=== PATIENT | female | born 1965 | race Hispanic/Latino ===

== ENCOUNTER → 2020-10-21 | Outpatient (CLI) | payer OTHER ==
[~2020-10-21] MED LIST: DOXYCYCLINE HY100 MG PO; PREMARIN0.625 MG PO; Z.0.ATENOLOL50 MG PO
== END ==
LOC: MRI 13:52
PROVIDERS: ATTEND Specialist
DX: S83.221A Peripheral tear of medial meniscus, current injury, right knee, initial encounter (principal)